=== PATIENT | male | born 1995 | race African-American/Black ===

== ENCOUNTER 2020-11-30 22:09 | Emergency (ER) | payer SELFPAY ==
[~2020-11-30] VITALS: Ht 177.8 cm; Wt 118.0 kg
[2020-11-30] MEDS ORDERED: IPRATRPIUM/ALBUTEROL 0.5/2.5MG 3 ML NEBU. ONE (22:13)
[2020-11-30] MEDS ORDERED: ALBUTEROL SULFATE 8GM INHALER. INH ONE (22:15)
[2020-11-30] MEDS ORDERED: DEXAMETHASONE 4 MG TABLET PO ONE (22:15)
[2020-11-30] MEDS ORDERED: IPRATRPIUM/ALBUTEROL 0.5/2.5MG 3 ML NEBU. NEB ONE (22:15)
--- NOTE | 2020-11-30 22:18 | PHYS DOC ---
Adult General HPI HPI Patient is a 25-year-old male with a past medical history significant for asthma who presents with asthma exacerbation which started today. States that despite his albuterol at home he has had some wheezing today that he cannot get rid of. Denies any recent traumas, travels, illnesses, fevers, chest pain, abdominal pain, nausea, vomiting, diarrhea. Review of Systems Review of Systems Review of systems otherwise unremarkable except noted in HPI Current Medications Current Medications Current Medications Medications (Trade) Dose Ordered Sig/Sánchez Start Time Stop Time Status Last Admin Dose Admin Albuterol/ Ipratropium (Duoneb) 3 ml STK-MED ONCE 11/30/20 22:13 11/30/20 22:13 DC Physical Exam Physical Exam Constitutional: Well developed, well nourished, no acute distress, non-toxic appearance. [] HENT: Normocephalic, atraumatic, bilateral external ears normal, oropharynx moist, no oral exudates, nose normal. [] Eyes: conjunctiva normal, no discharge. [] Neck: Normal range of motion, no tenderness, supple, no stridor. [] Cardiovascular:Heart rate regular rhythm, no murmur [] Lungs & Thorax: Bilateral breath sounds clear to auscultation [] Skin: Warm, dry, no erythema, no rash. [] Neurologic: Alert and oriented X 3, no focal deficits noted. [] Psychologic: Affect normal, judgement normal, mood normal. [] EKG EKG [] Radiology/Procedures Radiology/Procedures [] Heart Score C/O Chest Pain: No Risk Factors: Risk Factors: DM, Current or recent (<one month) smoker, HTN, HLP, family history of CAD, obesity. Risk Scores: Risk Factors: DM, Current or recent (<one month) smoker, HTN, HLP, family history of CAD, obesity. Course & Med Decision Making Course & Med Decision Making Patient is a 25-year-old male with a past medical history of asthma who presents with asthma exacerbation Vital signs notable for sinus tachycardia, most likely secondary to his albuterol. Physical exam noted above. Patient given steroids, breathing treatment and albuterol inhaler to take home and instructions by respiratory therapy on how to use the albuterol inhaler and spacer appropriately. Discussed all findings with patient and advised to follow-up with his primary care physician first thing Wednesday morning. Gave return precautions to the ED. Patient grateful, verbalized understanding and agreed with plan of discharge. [] Dragon Disclaimer Dragon Disclaimer This electronic medical record was generated, in whole or in part, using a voice recognition dictation system. Departure Departure: Impression: Primary Impression: Asthma exacerbation Disposition: HOME / SELF CARE / HOMELESS Condition: GOOD Referrals: AMADO KEARNEY MD Patient Instructions: Asthma Attacks, Prevention, Asthma, Adult Additional Instructions: Thank you for coming into the emergency department tonight and allowing us to take care of you. Please read all of the attached information very carefully to go back over things we discussed. You are given a breathing treatment and steroids and given an albuterol inhaler to take home. Please follow-up with your primary care physician first thing Wednesday and if you do not have a primary care physician please call the one at the number provided to establish care, you are also given local resources for free clinics as well to establish care. Please come into the emergency department with new or concerning symptoms as discussed. Scripts Albuterol Sulfate (PROAIR HFA INHALER) 8.5 Gm Hfa.aer.ad 2 PUFF IH PRN Q4-6HRS PRN for wheezing for 21 Days, #1 INHALER 0 Refills Prov: ASHLEY LACKEY MD 11/30/20 ASHLEY LACKEY MD Nov 30, 2020 22:18
[2020-11-30] MEDS ORDERED: ALBU2.5V8 IH (22:26)
[2020-11-30 22:40] VITALS: BP 115/84
== END 2020-11-30 22:35 | disposition home or self-care (01) ==
LOC: ER 22:09
DX: J45.901 Unspecified asthma with (acute) exacerbation (principal)
CPT/HCPCS: 94640; 99284; J8540; 94664